=== PATIENT | female | born 1985 | race Caucasian/White ===

== ENCOUNTER 2019-08-29 08:40 | Emergency (ER) | payer OTHER ==
[2019-08-29 08:56] VITALS: BP 167/95
--- NOTE | 2019-08-29 09:47 | UC ---
Throat Pain/Nasal Jeyson HPI - HPI Summary HPI Summary: 33-year-old woman comes in with a chief complaint of upper respiratory tract infection symptoms for one week. She's had green rhinorrhea or sinus pressure cough chest congestion. Occasional fevers. Started her menstrual period yesterday. She started with pelvic cramping that radiates in the midline to the level of the umbilicus and also bilaterally. Pain is intermittent. At this time at 2 out of 10 minutes at its worse is a 10 out of 10. Location and character of the pain is like her menstrual cramps but these are worse than usual. She took some ibuprofen last night which did help with the pain. The last period was in July 2019 and the timing is normal. Patient denies any chance of being . No burning with urination. No abnormal vaginal discharge. No concern of STI or yeast infection. - History of Current Complaint Chief Complaint: UCAbdominalPain Stated Complaint: COUGH,SOB,CONGESTION,LOWER ABD PAIN Time Seen by Provider: 08/29/19 09:16 Hx Last Menstrual Period: 08/28/2019 Pain Intensity: 6 - Allergies/Home Medications Allergies/Adverse Reactions: Allergies Allergy/AdvReac Type Severity Reaction Status Date / Time No Known Allergies Allergy Verified 08/29/19 08:51 Home Medications: Home Medications Amoxicillin PO (*) [Amoxicillin 875 MG (*)] 875 mg PO BID #20 tab 08/29/19 [Rx] Ibuprofen TAB* [Advil TAB*] 600 mg PO Q6H PRN 08/29/19 [History Confirmed ] PMH/Surg Hx/FS Hx/Imm Hx Previously Healthy: Yes - Surgical History Surgical History: Yes Surgery Procedure, Year, and Place: Right Carpal Tunnel Release, 2017, [place] - Family History Known Family History: Positive: None - Social History Alcohol Use: None Alcohol Amount: 2 DRINKS/YR Substance Use Type: None Smoking Status (MU): Former Smoker Type: Cigarettes Amount Used/How Often: 2 CIGARETTES/DAY FOR 2 YRS Length of Time of Smoking/Using Tobacco: 1 pack per week x 3 Years Have You Smoked in the Last Year: No When Did the Patient Quit Smoking/Using Tobacco: ~2012 Household Exposure Type: Cigarettes Review of Systems All Other Systems Reviewed And Are Negative: Yes Constitutional: Positive: Other - SEE HPI Skin: Positive: Negative Eyes: Positive: Negative ENT: Positive: Nasal Discharge, Sinus Congestion Respiratory: Positive: Cough Cardiovascular: Positive: Negative Gastrointestinal: Positive: Abdominal Pain Genitourinary: Positive: Negative Motor: Positive: Negative Neurovascular: Positive: Negative Musculoskeletal: Positive: Negative Neurological/Mental Status: Positive: Negative Psychological: Positive: Negative Is Patient Immunocompromised?: No Physical Exam Triage Information Reviewed: Yes Appearance: No Pain Distress, Well-Nourished, Ill-Appearing - MILD Vital Signs: Initial Vital Signs Temp 99.3 F 08/29/19 08:48 Pulse 108 08/29/19 08:48 Resp 26 08/29/19 08:48 BP 167/95 08/29/19 08:48 Pulse Ox 100 08/29/19 08:48 Vital Signs Reviewed: Yes Eye Exam: Normal Eyes: Positive: Conjunctiva Clear ENT: Positive: Pharyngeal erythema, Nasal congestion, Nasal drainage, TMs normal Neck: Positive: Supple Respiratory: Positive: Lungs clear, Normal breath sounds, No respiratory distress Cardiovascular: Positive: RRR Abdomen Description: Positive: Other: - Mild tenderness to palpation the midline over the suprapubic area and also on the right lower quadrant. No rebound. Positive bowel sounds. Bowel Sounds: Positive: Present Musculoskeletal: Positive: Strength Intact, ROM Intact Neurological: Positive: Muscle Tone Normal Psychological: Positive: Age Appropriate Behavior Skin Exam: Normal Throat Pain/Nasal Course/Dx - Course Course Of Treatment: DISCUSSED VIRAL VERSES BACTERIAL INFECTIONS AND THE ROLE OF ANTIBIOTICS. THE PATIENT PREFERS TO BE ON ANTIBIOTICS AT THIS TIME. Discussed the potential causes of the abdominal pain with the patient. Pain is intermittent and bilateral and eating and drinking and bowels have not changes therefore appendicitis is unlikely at this time. Also ovarian cyst or torsion is unlikely given that the pain is bilateral. Ectopic is not likely given that the patient has not had any sexual activity with male. No UTI symptoms. No STI symptoms. Most probable cause of the pelvic pain is her menstrual cramps that are worse than usual. We discussed all of this and the plan is to treat the abdominal pain with ibuprofen but if anything gets worse such as fevers increased her pain but she pain in the right lower quadrant or persistent pain or vomiting patient's crit emergency department for further evaluation and care. - Differential Dx/Diagnosis Provider Diagnosis: Upper respiratory infection, Abdominal pain Discharge ED - Sign-Out/Discharge Documenting (check all that apply): Patient Departure All imaging exams completed and their final reports reviewed: No Studies - Discharge Plan Condition: Stable Disposition: HOME Prescriptions: Amoxicillin PO (*) [Amoxicillin 875 MG (*)] 875 mg PO BID #20 tab Patient Education Materials: Upper Respiratory Infection (ED), Acute Abdominal Pain (ED) Forms: *Work Release Referrals: Maryann Obrien PA [Primary Care Provider] - Additional Instructions: FOLLOW UP WITH YOUR DOCTOR IF NOT COMPLETELY IMPROVED. GO TO THE EMERGENCY DEPARTMENT IF NOT IMPROVED OR WORSE; ABDOMINAL PAIN, ESPECIALLY RIGHT LOWER ABDOMINAL PAIN, FEVER, VOMITING OR ANY QUESTIONS OR CONCERNS. - Billing Disposition and Condition Condition: STABLE Disposition: Home
== END 2019-08-29 09:52 | disposition home or self-care (01) ==
LOC: UCCORT 08:40
DX: J06.9 Acute upper respiratory infection, unspecified (principal); R10.31 Right lower quadrant pain; Z87.891 Personal history of nicotine dependence
CPT/HCPCS: 99212; G0463